=== PATIENT | female | born 1985 | race Caucasian/White ===

== ENCOUNTER 2017-02-14 08:31 | Emergency (ER) | payer MEDICAID ==
--- NOTE | 2017-02-14 09:22 | C.PDOC ---
History Of Present Illness SORE THROAT, SUBJ FEVER, VALADEZ, SINUS DANE, COUGH X 2 DAYS. +SICK CONTACT W SAME. 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 +R EYE DC, NO REDNESS. NO ASTHMA, NV, CP, SOB EXAM MILD DIST NONTOXIC HEENT EYES CLEAR; EYELIDS CLEAR; +FRONTAL SINUS DANE W MIN TEND; NO RHINORRHEA; PHARYNX +B/L TONSILLITIS W SCANT EXUDATE, UVULA MIDLINE; MMM LUNGS CTA B/L NO W/R/R Time Seen by Provider: 02/14/17 09:22 Chief Complaint (Nursing): Flu-like Symptoms History Per: Patient History/Exam Limitations: no limitations Onset/Duration Of Symptoms: Days Current Symptoms Are (Timing): Still Present Location Of Pain: Throat, Headache Sick Contacts (Context): Family Member(s) Associated Symptoms: Fever (SUBJ), Nasal Congestion. denies: Chills, Vomiting, Diarrhea Ear Symptoms: Bilateral: None Recent travel outside of the [place]: No Past Medical History Reviewed: Historical Data, Nursing Documentation, Vital Signs Vital Signs: Last Vital Signs Temp 98.3 F 02/14/17 08:42 Pulse 117 H 02/14/17 08:42 Resp 20 02/14/17 08:42 BP 100/63 02/14/17 08:42 Pulse Ox 97 02/14/17 10:26 - Medical History PMH: No Chronic Diseases - [facility] Procedures DELIVERY OF PRODUCTS OF CONCEPTION, EXTERNAL APPROACH (11/13/15) MONITORING OF POC, CARDIAC RATE, ENTERPRISE MOBILITY ARCHITECT APPROACH (11/13/15) REPAIR PERINEUM MUSCLE, OPEN APPROACH (11/13/15) TETANUS TOXOID ADMINIST (04/18/14) Family History: States: Unknown Family Hx - Social History Hx Tobacco Use: No Hx Alcohol Use: No Hx Substance Use: No - Immunization History Hx Tetanus Toxoid Vaccination: No Hx Influenza Vaccination: No Hx Pneumococcal Vaccination: No Review Of Systems Except As Marked, All Systems Reviewed And Found Negative. Constitutional: Negative for: Fever Eyes: Positive for: Other (+R DISCHARGE) ENT: Positive for: Throat Pain. Negative for: Ear Pain Cardiovascular: Negative for: Chest Pain Respiratory: Positive for: Cough. Negative for: Shortness of Breath Gastrointestinal: Negative for: Nausea, Vomiting, Abdominal Pain Skin: Negative for: Rash Neurological: Positive for: Headache. Negative for: Dizziness Physical Exam - Physical Exam Appears: Non-toxic, Other (MILD DISTRESS) Skin: Normal Color, Warm, Dry Head: Atraumatic, Normacephalic, Tenderness (MINIMAL, FRONTAL SINUS) Eye(s): bilateral: Normal Inspection, PERRL, EOMI Nose: No Discharge Oral Mucosa: Moist Throat: Exudate (SCANT, BILATERAL TONSILS), Other (+BILATERAL TONSILITIS, UVULA MIDLINE) Neck: Supple Chest: Symmetrical Cardiovascular: Rhythm Regular Respiratory: Normal Breath Sounds (CTA BILATERALLY), No Rales, No Rhonchi, No Wheezing Gastrointestinal/Abdominal: Soft, No Tenderness Back: Normal Inspection Extremity: Normal ROM, Capillary Refill (< 2 SEC.) Neurological/Psych: Oriented x3, Normal Speech, Normal Cognition ED Course And Treatment O2 Sat by Pulse Oximetry: 97 (RA) Pulse Ox Interpretation: Normal - Radiology CXR: Interpreted by Me CXR Interpretation: Yes: No Acute Disease Disposition Counseled Patient/Family Regarding: Diagnosis, Need For Followup - Disposition Referrals: YOUR,PMD [Other] Disposition: HOME/ ROUTINE Disposition Time: 10:33 Condition: IMPROVED Additional Instructions: TAKE MOTRIN AND/OR TYLENOL NEEDED FOR PAIN DIRECTED. Instructions: Pharyngitis (ED) Forms: Work Excuse - Clinical Impression Clinical Impression: Pharyngitis - Scribe Statement The provider has reviewed the documentation as recorded by the Matt Kaplan Provider Attestation: All medical record entries made by the Matt were at my direction and personally dictated by me. I have reviewed the chart and agree that the record accurately reflects my personal performance of the history, physical exam, medical decision making, and the department course for this patient. I have also personally directed, reviewed, and agree with the discharge instructions and disposition.
[2017-02-14] MEDS ORDERED: Penicillin G Benzathine 1.2 Mill Unit/2 ml Syr IM ONE ×2 (10:34→10:49)
--- NOTE | 2017-02-14 10:42 | RAD ---
HISTORY: COUGH COMPARISON: 07/18/2016 TECHNIQUE: Chest PA and lateral FINDINGS: LUNGS: No active pulmonary disease. PLEURA: No significant pleural effusion identified. No pneumothorax apparent. CARDIOVASCULAR: Normal. OSSEOUS STRUCTURES: No significant abnormalities. VISUALIZED UPPER ABDOMEN: Normal. OTHER FINDINGS: None. IMPRESSION: No active disease.
[2017-02-14 11:06] VITALS: BP 112/64; PULSE 100; RESP 18; TEMP 98; O2SAT 100
== END 2017-02-14 11:06 | disposition home or self-care (01) ==
LOC: C.ER 08:31
DX: J02.9 Acute pharyngitis, unspecified (principal)
CPT/HCPCS: 71020; 87070; 87430; 87804; 96372; 99284; J0561

== ENCOUNTER 2017-05-20 19:43 | Emergency (ER) | payer MEDICAID ==
[2017-05-20 20:37] LABS: BASO % 0.2 % (0.0-2.0); EOS # 0.1 K/uL (0.0-0.7); EOS % 0.4 % (0.0-4.0); HEMOGLOBIN 12.1 g/dL (11.0-16.0); LYMPH # 1.8 K/uL (1.0-4.3); LYMPH % 14.2 % (20.0-40.0); MEAN CELL VOLUME 76.4 fL (81.0-99.0); MEAN CORPUSCULAR HEMOGLOBIN 24.2 pg (27.0-31.0); MEAN CORPUSCULAR HGB CONC 31.7 g/dL (33.0-37.0); MEAN PLATELET VOLUME 8.2 fL (7.2-11.7); MONO # 0.8 K/uL (0.0-0.8); MONO % 6.3 % (0.0-10.0); NEUT # 9.7 K/uL (1.8-7.0); NEUT % 78.9 % (50.0-75.0); RED CELL DISTRIBUTION WIDTH 17.5 % (11.5-14.5); WHITE BLOOD COUNT 12.3 K/uL (4.8-10.8)
[2017-05-20] MEDS ORDERED: Sodium Chloride 0.9% 1,000 ML IV ONE (20:39)
[2017-05-20 20:41] LABS: ALBUMIN 3.8 g/dL (3.5-5.0)
[2017-05-20 20:44] LABS: ALB/GLOB RATIO 0.9 (1.0-2.1); AST/SGOT 27 U/L (14-36); GFR AFRICAN-AMERICAN > 60; GFR NON-AFRICAN AMERICAN > 60
[2017-05-20 20:45] LABS: ALT/SGPT 32 U/L (9-52); BLOOD UREA NITROGEN 8 mg/dL (7-17); CALCIUM 8.1 mg/dl (8.6-10.4)
--- NOTE | 2017-05-20 20:45 | C.PDOC ---
History Of Present Illness A 32 y/o F c/o diarrhea, nausea, and vomiting for the pasts 2 days with abdominal pain and weakness that began today. Denies fever, chills, chest pain, diaphoresis, lightheadedness, palpitations, vaginal bleeding, discharge, or any other complaints. Time Seen by Provider: 05/20/17 20:35 Chief Complaint (Nursing): Abdominal Pain History Per: Patient History/Exam Limitations: no limitations Onset/Duration Of Symptoms: Days Current Symptoms Are (Timing): Still Present Severity: Mild Location Of Pain/Discomfort: Diffuse Radiation Of Pain To:: None Recent travel outside of the [place]: No Additional History Per: Patient Abnormal Vaginal Bleeding: No Past Medical History Reviewed: Historical Data, Nursing Documentation, Vital Signs Vital Signs: Last Vital Signs Temp 98.3 F 05/20/17 19:58 Pulse 107 H 05/20/17 19:58 Resp 20 05/20/17 19:58 BP 105/74 05/20/17 19:58 Pulse Ox 99 05/20/17 21:43 - Medical History PMH: Denies: Chronic Kidney Disease - [facility] Procedures DELIVERY OF PRODUCTS OF CONCEPTION, EXTERNAL APPROACH (11/13/15) MONITORING OF POC, CARDIAC RATE, 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 Constitutional: Positive for: Weakness. Negative for: Fever, Chills, Sweats Cardiovascular: Negative for: Chest Pain, Palpitations, Light Headedness Gastrointestinal: Positive for: Nausea, Vomiting, Abdominal Pain, Diarrhea Genitourinary: Negative for: Vaginal Discharge, Vaginal Bleeding Physical Exam - Physical Exam Appears: Non-toxic, No Acute Distress Skin: Warm, Dry Head: Atraumatic, Normacephalic Eye(s): bilateral: Normal Inspection Oral Mucosa: Moist Cardiovascular: Rhythm Regular, No Murmur Respiratory: Normal Breath Sounds, No Accessory Muscle Use, No Rales, No Rhonchi , No Wheezing Gastrointestinal/Abdominal: Soft, Tenderness (NOn-specific tenderness to the mid abdomen area), No Guarding, No Rebound Neurological/Psych: Oriented x3, Normal Speech, Normal Cognition, Other (No focal deficit) ED Course And Treatment - Laboratory Results Result Diagrams: 05/20/17 20:30 05/20/17 20:30 O2 Sat by Pulse Oximetry: 99 (RA) Pulse Ox Interpretation: Normal Medical Decision Making Medical Decision Making: Impression: A 32 y/o F c/o diarrhea, nasuea, and vomiting for the pasts 2 days with abdominal pain and weakness that began today. Plans: -Blood labs -Bentyl -IV fluids 21:41. On Re-evaluation: Pt feels better in the ER. NO diarrhea or vomiting noted. Abdomen is soft, nontender. Pt is to be discharge after IV Fluids are done. Disposition Counseled Patient/Family Regarding: Diagnosis - Disposition Referrals: [facility] [Outside] Disposition: HOME/ ROUTINE Disposition Time: 22:47 Condition: STABLE Prescriptions: Dicyclomine [Dicyclomine HCl] 10 mg PO QID #14 cap Instructions: Gastroenteritis (ED), Acute Diarrhea (ED), Clear Liquid Diet (ED) - POA Present On Arrival: None - Clinical Impression Clinical Impression: Gastroenteritis, Diarrhea - Scribe Statement The provider has reviewed the documentation as recorded by the Scribe Donnie garcia All medical record entries made by the Scribe were at my direction and personally dictated by me. I have reviewed the chart and agree that the record accurately reflects my personal performance of the history, physical exam, medical decision making, and the department course for this patient. I have also personally directed, reviewed, and agree with the discharge instructions and disposition.
[2017-05-20 20:56] LABS: LIPASE 65 U/L (23-300)
[2017-05-20 20:58] LABS: HCG,QUALITATIVE URINE NEGATIVE (NEGATIVE); SQUAMOUS EPITHIAL 3 /hpf (0-5); URINE BACTERIA OCC (<OCC); URINE BILIRUBIN NEGATIVE (NEGATIVE); URINE BLOOD 3+ (NEGATIVE); URINE CLARITY Hazy (Clear); URINE COLOR Yellow (YELLOW); URINE GLUCOSE (UA) NORMAL (Normal); URINE LEUKOCYTE ESTERASE NEG Leu/uL (Negative); URINE NITRATE NEGATIVE (NEGATIVE); URINE PROTEIN NEGATIVE (NEGATIVE); URINE UROBILINOGEN NORMAL mg/dL (0.2-1.0)
[2017-05-20] MEDS ORDERED: Potassium Chloride 20 mEq/15 ml LIQ UD PO STA (21:36)
[2017-05-20] MEDS ORDERED: Potassium Chloride 20 mEq/15 ml LIQ UD ONE (21:57)
[2017-05-21 12:08] VITALS: BP 109/74; PULSE 94; RESP 16; TEMP 98.2; O2SAT 98
== END 2017-05-20 23:09 | disposition home or self-care (01) ==
LOC: C.ER 19:43
DX: K52.9 Noninfective gastroenteritis and colitis, unspecified (principal); E87.6 Hypokalemia
CPT/HCPCS: 80053; 81001; 83690; 84703; 85025; 96360; 96372; 99284; J0500; J7040

== ENCOUNTER 2018-09-05 16:36 | Emergency (ER) | payer MEDICAID ==
[2018-09-05 16:37] VITALS: BMI 30.1
[2018-09-05 17:18] VITALS: RESP 18; TEMP 98.8
--- NOTE | 2018-09-05 17:28 | C.PDOC ---
History Of Present Illness 33 y/o female, , w/ LMP 07/12/18, presents to the ER complaining of suprapubic abdominal pain x 2 weeks and vaginal spotting x 1 week. Patient is also complaining of urinary frequency. Patient states that she took a home test which was positive. She notes that she feels weak, she feels different from her previous pregnancies. Denies having fever, chills, CP, SOB, nausea, and vomiting, dysuria, and hematuria. <Michel Simon - Last Filed: 09/05/18 18:47> History Per: Patient History/Exam Limitations: no limitations Onset/Duration Of Symptoms: Days Current Symptoms Are (Timing): Still Present Severity: Moderate <Michel Simon - Last Filed: 09/05/18 18:47> <Chary Reese - Last Filed: 09/05/18 21:33> Chief Complaint (Nursing): Abdominal Pain Past Medical History Reviewed: Historical Data, Nursing Documentation, Vital Signs Vital Signs: Last Vital Signs Temp 98.8 F 09/05/18 17:05 Pulse 98 H 09/05/18 17:05 Resp 18 09/05/18 17:05 BP 128/87 09/05/18 17:05 Pulse Ox 99 09/05/18 17:05 - Medical History PMH: No Chronic Diseases Denies: Chronic Kidney Disease Surgical History: Cholecystectomy - [facility] Procedures DELIVERY OF PRODUCTS OF CONCEPTION, EXTERNAL APPROACH (11/13/15) MONITORING OF POC, CARDIAC RATE, TAPPER BIT APPROACH (11/13/15) REPAIR PERINEUM MUSCLE, OPEN APPROACH (11/13/15) RESECTION OF GALLBLADDER, PERCUTANEOUS ENDOSCOPIC APPROACH (08/04/17) TETANUS TOXOID ADMINIST (04/18/14) Family History: States: No Known Family Hx - Social History Hx Tobacco Use: No Hx Alcohol Use: No Hx Substance Use: No - Immunization History Hx Tetanus Toxoid Vaccination: No Hx Influenza Vaccination: No Hx Pneumococcal Vaccination: No <Michel Simon - Last Filed: 09/05/18 18:47> Vital Signs: Last Vital Signs Temp 98.8 F 09/05/18 17:05 Pulse 98 H 09/05/18 17:05 Resp 18 09/05/18 17:05 BP 128/87 09/05/18 17:05 Pulse Ox 99 09/05/18 18:47 - [facility] Procedures DELIVERY OF PRODUCTS OF CONCEPTION, EXTERNAL APPROACH (11/13/15) MONITORING OF POC, CARDIAC RATE, TAPPER BIT APPROACH (11/13/15) REPAIR PERINEUM MUSCLE, OPEN APPROACH (11/13/15) RESECTION OF GALLBLADDER, PERCUTANEOUS ENDOSCOPIC APPROACH (08/04/17) TETANUS TOXOID ADMINIST (04/18/14) <Chary Reese - Last Filed: 09/05/18 21:33> Review Of Systems Except As Marked, All Systems Reviewed And Found Negative. Constitutional: Negative for: Fever, Chills Cardiovascular: Negative for: Chest Pain Respiratory: Negative for: Shortness of Breath Gastrointestinal: Positive for: Abdominal Pain. Negative for: Nausea, Vomiting Genitourinary: Positive for: Frequency, Other (vaginal spotting). Negative for: Dysuria, Hematuria <Michel Simon - Last Filed: 09/05/18 18:47> Physical Exam - Physical Exam Appears: Non-toxic, No Acute Distress Skin: Normal Color, Warm, Dry Head: Atraumatic, Normacephalic Eye(s): bilateral: Normal Inspection Nose: Normal Oral Mucosa: Moist Neck: Supple Chest: Symmetrical Cardiovascular: Rhythm Regular Respiratory: Normal Breath Sounds, No Rales, No Rhonchi, No Wheezing Gastrointestinal/Abdominal: Soft, Tenderness (mild suprapubic tenderness), No Guarding, No Rebound Neurological/Psych: Oriented x3, Normal Speech <Michel Simon - Last Filed: 09/05/18 18:47> ED Course And Treatment - Laboratory Results Result Diagrams: 09/05/18 17:50 O2 Sat by Pulse Oximetry: 99 (RA) Pulse Ox Interpretation: Normal <Hans Simonan - Last Filed: 09/05/18 18:47> - Laboratory Results Result Diagrams: 09/05/18 17:50 09/05/18 18:51 - CT Scan/US US Other Rad Studies (CT/US): Read By Radiologist, Radiology Report Reviewed CT/US Interpretation: History. Abdominal pain and vaginal spotting. Com parison. None available. Findings. Uterus. Single Live intrauterine gestation. CRL equivalent to 9 wks/0 days gestation. Gestational sac diameter equivalent to 9 wks/0 days gestation. age (Ultrasound estimated): 9 weeks 0 days. Heart rate: 168 bpm. Tammy-gestational hemorrhage: None. Uterus measures 10.77 x 6.9 x 7.8 cm. Posterior fibroid measures 1.44 x 1.27 x 1.37 cm. Cervix. Long and closed measuring 2.97 cm. No cervical abnormality seen. Right Ovary. Measures 2.86 x 1.51 x 2.24 cm. No mass. Normal flow. Left Ovary. Measures 2.75 x 1.67 x 2.72 cm. No mass. Normal flow. Corpus luteal cyst measures 1.3 x 1.17 x 1.34 cm. Free Fluid. None. Other Findings. None. Impression. 1. Single live intrauterine gestation 9 weeks 0 days. 2. Left ovarian corpus luteal cyst. <Chary Reese - Last Filed: 09/05/18 21:33> Medical Decision Making Medical Decision Making: Impression: Abdominal Pain, Vaginal Spotting Rule out ectopic vs, threatened Plan: --Labs --UA --US-Transvag <Michel Simon - Last Filed: 09/05/18 18:47> Medical Decision Making: Results discussed with patient. SLIUP on ultrasound. Blood type A+, no need for rhogam. 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 <Chary Reese - Last Filed: 09/05/18 21:33> Disposition <Michel Simon - Last Filed: 09/05/18 18:47> - Disposition Disposition Time: 21:20 <Chary Reese - Last Filed: 09/05/18 21:33> - Disposition Disposition: HOME/ ROUTINE Condition: GOOD Additional Instructions: LILA KEY, thank you for letting us take care of you today. Your provider was Chary Reese MD and you were treated for 5 WKS PREG/STOMACH PAINS. The emergency medical care you received today was directed at your acute symptoms. If you were prescribed any medication, please fill it and take as directed. It may take several days for your symptoms to resolve. Return to the Emergency Department if your symptoms worsen, do not improve, or if you have any other problems. Please contact your doctor or call one of the physicians/clinics you have been referred to that are listed on the Patient Visit Information form that is incl uded in your discharge packet. Bring any paperwork you were given at discharge with you along with any medications you are taking to your follow up visit. Our treatment cannot replace ongoing medical care by a primary care provider outside of the emergency department. Thank you for allowing the [facility] team to be part of your care today. If you had an X-Ray or CT scan: A Radiologist will review the ED reading if any change in treatment is needed we will contact you. If you had a blood, urine, or wound culture: It will take several days for the results, if any change in treatment is needed we will contact you. If you had an STI test: It will take 48 hours for the results. Please call after 1 week if you have not heard back. Instructions: Bleeding With (DC) Forms: [employer] (Bulgarian) - Clinical Impression Clinical Impression: Threatened miscarriage, Abdominal pain affecting - Scribe Statement The provider has reviewed the documentation as recorded by the Matt Wells Provider Attestation: All medical record entries made by the Scribe were at my direction and personally dictated by me. I have reviewed the chart and agree that the record accurately reflects my personal performance of the history, physical exam, medical decision making, and the department course for this patient. I have also personally directed, reviewed, and agree with the discharge instructions and disposition. <Michel Simon - Last Filed: 09/05/18 18:47>
[2018-09-05 17:59] LABS: SQUAMOUS EPITHIAL 1 /hpf (0-5); URINE BACTERIA RARE (<OCC); URINE BILIRUBIN NEGATIVE (NEGATIVE); URINE BLOOD NEGATIVE (NEGATIVE); URINE CLARITY Clear (Clear); URINE COLOR Yellow (YELLOW); URINE GLUCOSE (UA) NORMAL (Normal); URINE LEUKOCYTE ESTERASE NEG Leu/uL (Negative); URINE PROTEIN NEGATIVE (NEGATIVE); URINE UROBILINOGEN NORMAL mg/dL (0.2-1.0)
[2018-09-05 17:59] LABS: BASO # 0.1 K/uL (0.0-0.2); BASO % 0.4 % (0.0-2.0); EOS # 0.3 K/uL (0.0-0.7); EOS % 1.7 % (0.0-4.0); HEMOGLOBIN 10.9 g/dL (11.0-16.0); LYMPH # 3.2 K/uL (1.0-4.3); MEAN CELL VOLUME 75.6 fL (81.0-99.0); MEAN CORPUSCULAR HEMOGLOBIN 24.2 pg (27.0-31.0); MEAN PLATELET VOLUME 7.8 fL (7.2-11.7); MONO # 1.1 K/uL (0.0-0.8); MONO % 6.7 % (0.0-10.0); NEUT # 11.4 K/uL (1.8-7.0); NEUT % 71.2 % (50.0-75.0); NRBC % 0.1 % (0.0-2.0); RBC 4.5 Mil/uL (3.80-5.20); RED CELL DISTRIBUTION WIDTH 16.8 % (11.5-14.5)
[2018-09-05 19:15] LABS: ALB/GLOB RATIO 0.9 (1.0-2.1); ALBUMIN 3.5 g/dL (3.5-5.0); ALT/SGPT 17 U/L (9-52); AST/SGOT 19 U/L (14-36); BLOOD UREA NITROGEN 10 mg/dL (7-17); CALCIUM 9.1 mg/dl (8.6-10.4); GFR NON-AFRICAN AMERICAN > 60
[2018-09-05 21:28] VITALS: BP 121/82; PULSE 67; O2SAT 100
--- NOTE | 2018-09-06 10:35 | US ---
Date of service: 09/05/2018 PROCEDURE: OB Pelvic Ultrasound HISTORY: abdominal pain and vaginal spotting COMPARISON: None available. FINDINGS: UTERUS: Single live intrauterine gestation. CRL measures 2.29 cm equivalent to 9 weeks and 0 day of gestational age. Gestational sac diameter measures 3.79 cm equivalent to 9 weeks and 0 day of gestational age. age (Ultrasound estimated): 9 weeks and 0 day Date of delivery (Ultrasound estimated) : 04/10/2019 Heart rate: 168 bpm. Tammy-gestational hemorrhage: None. Uterus measures 10.7 x 6.9 x 7.8 cm. Anteverted. There is a 1.4 x 1.2 x 1.3 cm posterior wall subserosal fibroid. CERVIX: Long and closed. No cervical abnormality seen. RIGHT OVARY: Measures 2.8 x 1.5 x 2.2 cm. No mass. Normal flow. LEFT OVARY: Measures 2.7 x 1.6 x 2.7 cm. No mass. Normal flow. The there is a 1.3 x 1.1 x 1.3 cm complicated corpus luteum cyst. FREE FLUID: None. OTHER FINDINGS: None. IMPRESSION: Single live intrauterine gestation with mean gestational age of 9 weeks and 0 day. The estimated date of delivery by ultrasound is 04/10/2019.
== END 2018-09-05 21:28 | disposition home or self-care (01) ==
LOC: C.ER 16:36
DX: O20.0 Threatened abortion (principal); O26.891 Other specified pregnancy related conditions, first trimester; R10.9 Unspecified abdominal pain; Z3A.09 9 weeks gestation of pregnancy

== ENCOUNTER 2018-11-21 11:04 | Emergency (ER) | payer MEDICAID, OTHER ==
[2018-11-21 11:04] VITALS: BMI 30.1
[2018-11-21 11:09] VITALS: BP 107/71; PULSE 99; RESP 18; TEMP 98.1; O2SAT 115
--- NOTE | 2018-11-21 13:00 | C.PDOC ---
History Of Present Illness 33 y/o female, who is 5 months , comes in complaining of a sore throat and nasal congestion for the past 2 days. Patient states she has not taken medications for her symptoms because she is unsure which she could take since she is . Also complains of some right-sided abdominal pressure. Patient has no other complaints. Time Seen by Provider: 11/21/18 11:15 Chief Complaint (Nursing): ENT Problem History Per: Patient History/Exam Limitations: None Onset/Duration Of Symptoms: Days Current Symptoms Are (Timing): Still Present Past Medical History Reviewed: Historical Data, Nursing Documentation, Vital Signs Vital Signs: Last Vital Signs Temp 98.1 F 11/21/18 11:05 Pulse 99 H 11/21/18 11:05 Resp 18 11/21/18 11:05 BP 107/71 11/21/18 11:05 Pulse Ox 115 H 11/21/18 11:05 - Medical History PMH: Denies: Chronic Kidney Disease Surgical History: Cholecystectomy - [facility] Procedures DELIVERY OF PRODUCTS OF CONCEPTION, EXTERNAL APPROACH (11/13/15) MONITORING OF POC, CARDIAC RATE, BIN PACKER APPROACH (11/13/15) REPAIR PERINEUM MUSCLE, OPEN APPROACH (11/13/15) RESECTION OF GALLBLADDER, PERCUTANEOUS ENDOSCOPIC APPROACH (08/04/17) TETANUS TOXOID ADMINIST (04/18/14) Family History: States: No Known Family Hx - Social History Hx Tobacco Use: No Hx Alcohol Use: No Hx Substance Use: No - Immunization History Hx Tetanus Toxoid Vaccination: No Hx Influenza Vaccination: No Hx Pneumococcal Vaccination: No Review Of Systems Constitutional: Negative for: Fever, Chills Eyes: Negative for: Redness ENT: Positive for: Nose Congestion, Other (Sore throat) Cardiovascular: Negative for: Chest Pain Respiratory: Negative for: Cough, Shortness of Breath Gastrointestinal: Negative for: Nausea, Vomiting, Diarrhea Genitourinary: Negative for: Dysuria, Hematuria Skin: Negative for: Rash Neurological: Negative for: Weakness, Numbness, Dizziness Physical Exam - Physical Exam Appears: Non-toxic, No Acute Distress Skin: Normal Color, Warm Head: Atraumatic, Normacephalic Eye(s): bilateral: Normal Inspection, PERRL, EOMI Nose: Other (Bilateral nasal turbinate enlargement, clear mucous discharge) Oral Mucosa: Moist Throat: Other (Enlarged tonsils but no exudates, uvula midline, airway is patent) Neck: Normal ROM, Supple Chest: Symmetrical Cardiovascular: Rhythm Regular, No Murmur Respiratory: Normal Breath Sounds, No Rales, No Rhonchi, No Wheezing Gastrointestinal/Abdominal: Soft (gravid), No Tenderness Extremity: Bilateral: Atraumatic, Normal Color And Temperature, Normal ROM Neurological/Psych: Oriented x3, Normal Speech ED Course And Treatment O2 Sat by Pulse Oximetry: 115 (RA) Pulse Ox Interpretation: Abnormal - CT Scan/US Obstetrics US Other Rad Studies (CT/US): Read By Radiologist, Radiology Report Reviewed CT/US Interpretation: Findings: There is a single living fetus in cephalic presentation. Anterior placenta. The placenta is not previa. There are no adnexal masses or cysts evident. Cervix length measures approximately 2.8 cm. Measurements and calculations: Fetus has a composite sonographic age of 20 weeks 3 days. This calculation is based on the biparietal diameter, head circumference, abdominal circumference, and femur length. Estimated heart rate 148.20 beats per min. Estimated weight 330.5 g. The study was performed for emergent evaluation, and the whole anatomic survey of the fetus was not performed. This should be performed on an outpatient elective basis as clinically warranted. Impression: Single living fetus with a composite sonographic age of 20 weeks 3 days. Estimated heart rate 148.2 beats per min. Medical Decision Making Medical Decision Making: Plan: --Strep swab --Tylenol PO Pt to be sent for eval in L&D upon discharge from ED Disposition Counseled Patient/Family Regarding: Diagnosis, Need For Followup - Disposition Disposition: HOME/ ROUTINE Disposition Time: 12:59 Condition: STABLE Instructions: Sore Throat, Adult (DC) Forms: [employer] (Polish), General Discharge Instructions - Clinical Impression Clinical Impression: Pharyngitis - PA / COLORECTAL SURGEON / Resident Statement MD/DO has reviewed & agrees with the documentation as recorded. - Scribe Statement The provider has reviewed the documentation as recorded by the Yasmanyibcl Valdivia All medical record entries made by the Scribe were at my direction and personally dictated by me. I have reviewed the chart and agree that the record accurately reflects my personal performance of the history, physical exam, medical decision making, and the department course for this patient. I have also personally directed, reviewed, and agree with the discharge instructions and disposition.
--- NOTE | 2018-11-21 14:44 | US ---
Indication: 2nd trimester,measure cervical length; pelvic pain Comparison: 1st trimester ultrasound performed 09/05/18 Technique: Real-time ultrasound was performed through the pelvis. Findings: There is a single living fetus in cephalic presentation. Anterior placenta. The placenta is not previa. There are no adnexal masses or cysts evident. Cervix length measures approximately 2.8 cm. Measurements and calculations: Fetus has a composite sonographic age of 20 weeks 3 days. This calculation is based on the biparietal diameter, head circumference, abdominal circumference, and femur length. Estimated heart rate 148.20 beats per min. Estimated weight 330.5 g. The study was performed for emergent evaluation, and the whole anatomic survey of the fetus was not performed. This should be performed on an outpatient elective basis as clinically warranted. Impression: Single living fetus with a composite sonographic age of 20 weeks 3 days. Estimated heart rate 148.2 beats per min.
[2018-11-21 14:46] LABS: SQUAMOUS EPITHIAL < 1 /hpf (0-5); URINE BACTERIA OCC (<OCC); URINE BILIRUBIN NEGATIVE (NEGATIVE); URINE BLOOD NEGATIVE (NEGATIVE); URINE CLARITY Clear (Clear); URINE COLOR Yellow (YELLOW); URINE GLUCOSE (UA) NORMAL (Normal); URINE LEUKOCYTE ESTERASE NEG Leu/uL (Negative); URINE PROTEIN NEGATIVE (NEGATIVE); URINE UROBILINOGEN NORMAL mg/dL (0.2-1.0)
== END 2018-11-21 15:16 | disposition home or self-care (01) ==
LOC: C.ER 11:04 → C.EROB 11:04
DX: J02.9 Acute pharyngitis, unspecified (principal); O99.512 Diseases of the respiratory system complicating pregnancy, second trimester; Z3A.20 20 weeks gestation of pregnancy